=== PATIENT | male | born 2000 | race Caucasian/White ===

== ENCOUNTER 2021-03-07 09:37 | Emergency (ER) | payer SELFPAY ==
[2021-03-07 09:38] VITALS: BP 138/91; PULSE 84; RESP 16; TEMP 36.7; O2SAT 100; BMI 34.8
--- NOTE | 2021-03-07 10:28 | EX.ED.DYSGE1 ---
HPI History of Present Illness Chief Complaint: Edema Informant: patient Narrative Narrative: 20-year-old male states that he woke during the night with a bit of a sore throat and when he woke up this morning his uvula was swollen. He denies any exposure to any new chemicals or irritants. No alcohol last night. He is a smoker. PFSH PFS Medical History no medical history Allergy/AdvReac Type Severity Reaction Status Date / Time No Known Allergies Allergy Verified 03/07/21 09:41 Surgical History no surgical history Social History (Updated 03/07/21 @ 10:[address] Eddie Chaves, DO) Smoking Status: Current every day smoker tobacco type: cigarettes substance use type: does not use ROS ROS ED Constitutional Constitutional ED: Denies chills or weight loss Eyes Eyes: Denies change in vision or diplopia ENT ENT ED: Reports sore throat; Denies ear pain or rhinorrhea Cardiovascular Cardiovascular: Denies chest pain, orthopnea, palpitations or racing heartbeat Respiratory/Chest Respiratory/Chest: Denies cough, dyspnea or orthopnea Gastrointestinal Gastrointestinal: Denies abdominal pain, diarrhea, nausea or vomiting Genitourinary Genitourinary ED: Denies dysuria, hematuria or urinary frequency Musculoskeletal Musculoskeletal: Denies arthralgias or myalgias Integumentary Denies abscess or rash Neurologic Neurologic: Denies headache(s) or weakness Psychiatric Psychiatric: Denies anxiety, depression, suicidal ideation or suicidal thoughts Endocrine Endocrinology: Denies polydipsia, polyphagia or polyuria Allergic/Immunologic Allergic/Immunologic ED: Denies mouth swelling, tongue swelling or urticaria EXAM Physical Exam Const Vital Signs: 03/07/21 09:38 Temperature 98.1 F Temperature Source Temporal Pulse Rate 84 Respiratory Rate 16 Blood Pressure 138/91 H Blood Pressure Mean 106 Pulse Ox 100 Oxygen Delivery Method Room Air Positive well nourished and well developed General Appearance ED: well developed HEENT Reports normocephalic, head/scalp atraumatic and moist mucous membranes HEENT Narrative: Patient's uvula is swollen. He is not drooling. Negative for trauma Eyes PERRL and EOMs intact bilaterally Neck no lymphadenopathy, supple and no JVD Resp normal respiratory effort and clear to auscultation bilaterally Cardio regular rate, regular rhythm and no murmurs GI normal to inspection, nondistended, normoactive bowel sounds and non-tender Palpation: soft Back/Spine no CVA tenderness and normal ROM Extremity normal to inspection General Extremety ED: Negative for edema General Extremity: Negative for edema Neuro oriented x3 and CN's II-XII intact bilaterally Sensorium / Orientation: alert Motor Exam: strength 5/5 throughout Psych mental status grossly normal Mood & Affect: Negative for depressed or tearful Skin no rashes or lesions noted and no wounds MDM MDM MDM Narrative Medical decision making narrative: Patient will be given a dose of Benadryl and Decadron. Instructions for cold fluids today. Continued Benadryl as needed. Return if worsening or concerns Discharge Plan Triage Chief Complaint: Edema ED Provider: Eddie Chaves Dx/Rx/DC Orders Clinical Impression: Uvulitis Instructions: ED Uvulitis Primary Care Provider: Manolo Buckner Referrals: Manolo Buckner MD [Primary Care Provider] - As Needed Disposition Disposition: Home, Self Care
[2021-03-07 10:38] VITALS: RESP 16; O2SAT 96
[2021-03-07] MEDS: DiphenhydrAMINE 25 MG Capsule PO (10:40)
[2021-03-07] MEDS: dexAMETHasone 10 MG/ML Vial PO.IVFORM (10:40)
[2021-03-07 10:41] VITALS: BP 129/64; PULSE 83; RESP 17; O2SAT 97
== END 2021-03-07 10:46 | disposition home or self-care (01) ==
LOC: ED 10:29
PROVIDERS: Emergency Provider Emergency Medicine
DX: K12.2 Cellulitis and abscess of mouth (principal); F17.210 Nicotine dependence, cigarettes, uncomplicated
CPT/HCPCS: 94760; 99283

== ENCOUNTER 2021-09-26 06:49 | Emergency (ER) | payer MEDICAID, SELFPAY ==
[2021-09-26 06:49] VITALS: BP 144/97; PULSE 53; RESP 16; TEMP 36.6; O2SAT 99; BMI 37.0
--- NOTE | 2021-09-26 07:03 | EDS_ITS ---
HPI History of Present Illness Chief Complaint: Dental Informant: patient Narrative Narrative: Patient is a 21-year-old male who denies any past medical history presenting with dental pain. Patient states he has been having ongoing dental pain for the past 2 years. He describes his baseline pain as aching and constant. He notes last night he started having increased pain on his bottom jaw. It is hard for him to localize left or right. States that sharp and was keeping him up at night he was crying because the pain was so bad. Taking Tylenol with no relief. Has not seen a dentist because he did not realize there were any free dental clinics and does not have dental insurance. Does smoke cigarettes. No other complaints at this time denies any difficulty swallowing. No fever or chills. States his girlfriend told him his face was swollen this morning. Feel that his voice is normal. PFSH PFSH Medical History no medical history Home Medications amoxicillin 875 mg-potassium clavulanate 125 mg tablet 1 tab PO BID #20 tabs 09/26/21 [Rx Last Taken Unknown] ibuprofen 600 mg tablet 600 mg PO Q6H PRN pain #20 tabs 09/26/21 [Rx Last Taken Unknown] Allergy/AdvReac Type Severity Reaction Status Date / Time No Known Allergies Allergy Verified 09/26/21 06:52 Social History Smoking Status: Current every day smoker tobacco type: cigarettes substance use type: does not use ROS ROS ED Constitutional Constitutional ED: Denies chills or fever(s) Eyes Eyes: Denies blurry vision or change in vision ENT ENT ED: Reports other Details: dental pain, facial swelling Cardiovascular Cardiovascular: Denies chest pain Respiratory/Chest Respiratory/Chest: Denies cough Gastrointestinal Gastrointestinal: Denies nausea or vomiting Musculoskeletal Musculoskeletal: Denies arthralgias or myalgias Integumentary Denies rash Neurologic Neurologic: Denies headache(s) Psychiatric Psychiatric: Denies anxiety EXAM Physical Exam Const Vital Signs: 09/26/21 06:49 Temperature 97.8 F Temperature Source Temporal Pulse Rate 53 L Respiratory Rate 16 Blood Pressure 144/97 H Blood Pressure Mean 112 Pulse Ox 99 Oxygen Delivery Method Room Air Positive well nourished and well developed General Appearance ED: well developed and NAD HEENT Reports TM's clear Negative for trauma Tympanic Membrane ED: Yes TM's clear Mouth ED: Yes oral and palatal mucosa normal, Yes lips normal and Yes tongue normal Mouth: oral and palatal mucosa normal, lips normal and tongue normal Teeth and Gingiva: abnormal tooth and associated gingiva Positive for other (Cracked right last molar with associated tenderness palpation. Associated dental caries present. No surrounding abscess appreciated. No other pin point tenderness ), gingiva abnormal Positive for diffuse gingival erythema and teeth discoloration Eyes PERRL and EOMs intact bilaterally Neck no lymphadenopathy and supple Chest Wall inspection of chest normal Resp normal respiratory effort and clear to auscultation bilaterally Cardio regular rate and no murmurs GI non-distended Extremity normal to inspection General Extremety ED: Negative for edema General Extremity: Negative for edema Neuro oriented x3 and moves all extremities Motor Exam: Negative for general weakness Psych mental status grossly normal Skin no rashes or lesions noted Image ED - URI/Dental Diagram: 1. MDM MDM MDM Narrative Medical decision making narrative: Patient evaluated for worsening dental pain. No obvious abscess. No airway compromise. Blood pressure mildly elevated but patient otherwise well- appearing. Is started on Augmentin and Motrin. Given dental referral sheet. Counseled on tobacco cessation. Discharge Plan Triage Chief Complaint: Dental ED Provider: Emmie Humphrey Dx/Rx/DC Orders Clinical Impression: Dentalgia, Nontraumatic broken or cracked tooth Instructions: ED Dental Pain Prescriptions: New ibuprofen 600 mg tablet 600 mg PO Q6H PRN (Reason: pain) Qty: 20 0RF amoxicillin-pot clavulanate 875-125 mg tablet 1 tab PO BID Qty: 20 0RF Primary Care Provider: Care Physician,No Primary Referrals: Kathi Sosa [NON-STAFF] - As soon as possible Care Physician,No Primary [Primary Care Provider] - Disposition Disposition: Home, Self Care
[2021-09-26] MEDS: Amox/Clavulanate 875 MG Tablet PO (07:30)
[2021-09-26] MEDS: Ibuprofen 600 MG Tablet PO (07:30)
== END 2021-09-26 07:31 | disposition home or self-care (01) ==
LOC: ED 07:19
PROVIDERS: Emergency Provider Emergency Medicine; Visit Provider Emergency Medicine
DX: K08.89 Other specified disorders of teeth and supporting structures (principal); F17.210 Nicotine dependence, cigarettes, uncomplicated
CPT/HCPCS: 99283

== ENCOUNTER 2024-10-19 16:03 | Emergency (ER) | payer SELFPAY ==
[2024-10-19 16:04] VITALS: BP 135/90; PULSE 77; RESP 16; TEMP 36.8; O2SAT 99; BMI 32.8
--- NOTE | 2024-10-19 16:16 | EX.ED.DYSGE1 ---
HPI History of Present Illness Chief Complaint: Wound Narrative Narrative: Patient is a 24-year-old male with no known significant past medical history who presented to the emergency department chief complaint of right middle finger pain. He states that about 4 5 days ago now he was on vacation and hit his hand against a door and he ripped part of his broken nail off. He states that since then he has noted some increased swelling and redness around his nailbed that is progressively worsened with pain prompting him to come here for further evaluation management. Patient states that he is unsure when his last tetanus shot was. PFSH PFSH Home Medications ?Medication ?Instructions ?Recorded ?Last Taken ?Type amoxicillin 875 mg-potassium 1 tab PO BID #20 tabs 09/26/21 Unknown Rx clavulanate 125 mg tablet ibuprofen 600 mg tablet 600 mg PO Q6H PRN pain #20 tabs 09/26/21 Unknown Rx clindamycin HCl 300 mg capsule 300 mg PO TID 5 days #15 caps 10/19/24 Unknown Rx (Cleocin HCl) Allergy/AdvReac Type Severity Reaction Status Date / Time No Known Allergies Allergy Verified 10/19/24 16:03 Social History Smoking Status: Current every day smoker tobacco type: cigarettes substance use type: does not use ROS ROS ED ROS Narrative Constitutional: Denies any fevers or chills Neurological: Denies any numbness, wheeze, tingling Musculoskeletal: Complains of finger pain around the nailbed as noted above Skin: Complains of swelling and redness around his nailbed as noted above in the right middle finger EXAM Physical Exam Narrative Exam Narrative: General: Patient was lying in bed rest comfortably did not appear to be acute distress Head: Atraumatic, normocephalic Eyes: PERRL bilaterally, EOMI bilaterally, no conjunctival injection noted Neck: Soft, supple, trachea midline Cardiovascular: Regular rhythm Extremities: Radial pulses +2/4 with about extremities, +5/5 strength noted to bilateral lower extremities Neurological: Patient following commands knew that he was at [facility] year is 2024 Skin: Patient has redness and fluctuance noted just proximal to the nailbed on the right middle finger, rest of middle finger is normal in appearance no concern for flexor tenosynovitis no concern for felon Const Vital Signs: 10/19/24 16:04 Temperature 98.2 F Temperature Source Oral Pulse Rate 77 Respiratory Rate 16 Blood Pressure 135/90 H Blood Pressure Mean 105 Pulse Ox 99 Oxygen Delivery Method Room Air MDM MDM MDM Narrative Medical decision making narrative: Patient is a 24-year-old male who presented to the emergency department with a chief complaint of right middle finger pain and swelling with redness. On the differential diagnosis includes but not limited to paronychia, felon although clinically this does not appear to be the case, cellulitis. Patient's tetanus shot will be updated. Patient had digital block applied see procedure note for details. Patient had paronychia drained and will be placed on 5 days of clindamycin. Patient was advised follow-up with In outpatient and return with worsening symptoms or concerns. He is agreeable to plan all course concerns answered he is discharged home in stable condition. Procedure note Preprocedure diagnosis: Right middle finger paronychia Postprocedure diagnosis: Same as above Timeout protocol was performed prior to initiating procedure. The area was prepped and draped in the usual, sterile manner. The site was anesthetized using digital block with 1 percent lidocaine without epinephrine. A linear incision along the local skin lines were made and the purulent material expressed. The abscess was explored thoroughly and sequestered pockets were opened. Bleeding was minimal. Follow-up: The patient tolerated procedure well without complications. Standard postprocedure care is explained and return precautions were given. Discharge Plan Triage Chief Complaint: Wound ED Provider: Robel Del Toro Dx/Rx/DC Orders Clinical Impression: Paronychia of finger of right hand, Finger pain, right Prescriptions: New clindamycin HCl [Cleocin HCl] 300 mg capsule 300 mg PO TID 5 Days Qty: 15 0RF No Action ibuprofen 600 mg tablet 600 mg PO Q6H PRN (Reason: pain) Qty: 20 0RF amoxicillin-pot clavulanate 875-125 mg tablet 1 tab PO BID Qty: 20 0RF Primary Care Provider: Care Physician,No Primary Referrals: Care Physician,No Primary [Primary Care Provider] - Karin Harris, USED [employer]-[facility] [[facility]] - Activity Restrictions/Additional Instructions: Watch out for signs of worsening infection. Keep the area covered and dry and clean. Follow-up with Referred to or return here with worsening symptoms or any concerns. Print Language: Greek Disposition Disposition: Home, Self Care
[2024-10-19] MEDS: Lidocaine 1% (20 ml mdv) 20 ML Vial 10 ML INFILT (16:25)
[2024-10-19 17:27] VITALS: BP 110/73; PULSE 78; RESP 18; TEMP 36.4; O2SAT 97
== END 2024-10-19 17:32 | disposition home or self-care (01) ==
PROVIDERS: Emergency Provider Emergency Medicine; Visit Provider Emergency Medicine
DX: M79.644 Pain in right finger(s) (principal); L03.011 Cellulitis of right finger; W22.8XXA Striking against or struck by other objects, initial encounter; F17.210 Nicotine dependence, cigarettes, uncomplicated; L02.511 Cutaneous abscess of right hand; Z23 Encounter for immunization
CPT/HCPCS: 10060; 90471; 99282